=== PATIENT | female | born 1980 ===

== ENCOUNTER → 2021-06-28 | Outpatient (CLI) | payer SELFPAY | LOC: LABNPT 15:05 → EDSEX 15:05 | PROVIDERS: ATTEND Family Medicine | DX: H60.501 Unspecified acute noninfective otitis externa, right ear (principal) | CPT/HCPCS: 87070; 87077 ==

== ENCOUNTER → 2021-10-18 | Outpatient (CLI) | payer MEDICAID | LOC: LAB FS 12:32 | PROVIDERS: ATTEND Registered Nurse Emergency | DX: Z01.419 Encounter for gynecological examination (general) (routine) without abnormal findings (principal); N93.9 Abnormal uterine and vaginal bleeding, unspecified | CPT/HCPCS: 87210 ==

== ENCOUNTER → 2021-11-15 | Outpatient (CLI) | payer MEDICAID ==
[2021-11-15 12:25] LABS: BASOPHILS % (AUTO) 0 % (0-10); EOSINOPHILS # (AUTO) 0.1 10^3/uL (0.0-0.3); EOSINOPHILS % (AUTO) 2 % (0-10); HEMATOCRIT 42 % (35-52); HEMOGLOBIN 13.9 g/dL (11.5-16.0); LYMPHOCYTES # (AUTO) 1.8 10^3/uL (1.0-4.0); LYMPHOCYTES % (AUTO) 32 % (12-44); MEAN CORPUSCULAR HEMOGLOBIN 29 pg (25-34); MEAN CORPUSCULAR HGB CONC 33 g/dL (32-36); MEAN CORPUSCULAR VOLUME 87 fL (80-99); MEAN PLATELET VOLUME 10.4 fL (9.0-12.2); MONOCYTES # (AUTO) 0.4 10^3/uL (0.0-1.0); MONOCYTES % (AUTO) 7 % (0-12); NEUTROPHILS # (AUTO) 3.5 10^3/uL (1.8-7.8); NEUTROPHILS % (AUTO) 60 % (42-75); PLATELET COUNT 221 10^3/uL (130-400); WHITE BLOOD COUNT 5.8 10^3/uL (4.3-11.0)
== END ==
LOC: LAB FS 12:04
PROVIDERS: ATTEND Family Medicine
DX: O02.1 Missed abortion (principal)
CPT/HCPCS: 36415; 84702; 85025; 86850; 86900; 86901

== ENCOUNTER 2021-11-17 07:54 | Day surgery (SDC) | payer MEDICAID ==
[~2021-11-17] VITALS: Ht 165.1 cm; Wt 61.3 kg
[2021-11-17] VITALS (12 sets, daily range): BP systolic 100–126; BP diastolic 68–84
--- NOTE | 2021-11-17 08:45 | Progress Note-Pre Operative ---
Pre-Operative Progress Note H&P Reviewed The H&P was reviewed, patient examined and no changes noted. Time Seen by Provider: 08:25 Date H&P Reviewed: Nov 17, 2021 Time H&P Reviewed: 08:25 Pre-Operative Diagnosis: incomplete AB RADHA GALEANA MD Nov 17, 2021 08:45
[2021-11-17] MEDS: LACTATED RINGERS 1,000 ML IV PRN ×2 (08:55→10:24)
[2021-11-17] MEDS ORDERED: ceFAZolin 2 GM IV Premixed 50 ML ONE (08:59)
[2021-11-17] MEDS ORDERED: ceFAZolin 2 GM IV Premixed 50 ML IV ONE (09:00)
[2021-11-17] MEDS ORDERED: fentaNYL INJ 100 MCG/2 ML AMP ONE (09:13)
[2021-11-17] MEDS ORDERED: MIDAZOLAM 2 MG/2 ML (VERSED) VIAL ONE (09:13)
[2021-11-17] MEDS ORDERED: BUPIVACAINE 0.5% 30 ML (SENSORCAINE) VIAL ONE (09:40)
[2021-11-17] MEDS ORDERED: ONDANSETRON 4 MG/2 ML (SDV) Z0FRAN ONE (09:52)
[2021-11-17] MEDS ORDERED: LIDOCAINE PF 2% 5 ML (XYLOCAINE) VIAL ONE (09:52)
[2021-11-17] MEDS ORDERED: proPOfol 200 MG/20 ML (DIPRIVAN) VIAL IV ONE (09:52)
--- NOTE | 2021-11-17 10:21 | OB/GYN Operative Report ---
Operative Report Date of Procedure:Nov 17, 2021 Preoperative Diagnosis: [AB at 8 weeks] Postoperative Diagnosis: [Same] Name of the Procedure: [Sono-guided suction D&C] Surgeon: Radha Galeana Mail Sorter And Delivery(s): [none] Anesthesia: [General] Indications for Procedure: [] Findings of the Procedure: [Intrauterine at 8 weeks gestation with no cardiac activity and old blood clots] Name and Description of the Procedure: [] Complications: None Disposition: Stable Procedure After the risk benefits alternatives of the procedure were described to the patient she was taken to the operating room where general anesthesia was obta ined without difficulty. She was placed in the dorsal lithotomy position and prepped and draped in the usual sterile fashion. Transvesicle sono demonstrated the above findings. A weighted speculum was placed in the patient's vagina and the anterior lip of the cervix grasped with a single-tooth tenaculum. A paracervical block was placed and the cervix was dilated to accommodate an 8 mm curved curette. Under sono guidance this was advanced and suction applied to remove products of conception. The sac was advanced to the cervical os and removed with pickups. Suction was continued until no additional products were retrieved. Sharp curette was performed once confirming rough edges throughout the endometrial canal. Transabdominal sono confirmed removal of all products of conception. All instruments removed from the patient's vagina. Patient tolerated the procedure well. Sponge lap needle and instrument counts were correct and she was taken to recovery room awake and in stable condition RADHA GALEANA MD Nov 17, 2021 10:21
[2021-11-17] MEDS ORDERED: SEVOFLURANE (ULTANE) 15 ML INHAL SOLN ONE (10:28)
[2021-11-17] MEDS ORDERED: KETOROLAC 30 MG/ML VIAL IVP ONE (10:30)
[2021-11-17] MEDS ORDERED: D5 LR IV SOLUTION 1,000 ML IV SCH (10:30)
[2021-11-17] MEDS ORDERED: ONDANSETRON 4 MG/2 ML (SDV) Z0FRAN IVP PRN (10:30)
[2021-11-17] MEDS ORDERED: KETOROLAC 30 MG/ML VIAL ONE (10:38)
--- NOTE | 2021-11-17 12:57 | Anesthesia-General Post-Op ---
General Patient Condition Mental Status/LOC: Same as Preop Cardiovascular: Satisfactory Nausea/Vomiting: Absent Respiratory: Satisfactory Pain: Controlled Complications: Absent Post Op Complications Complications None Follow Up Care/Instructions Patient Instructions None needed. Anesthesia/Patient Condition Patient Condition Patient is doing well, no complaints, stable vital signs, no apparent adverse anesthesia problems. No complications reported per nursing. GARTH ENNIS CRNA Nov 17, 2021 12:57
== END 2021-11-17 12:50 ==
LOC: SDC 07:54
PROVIDERS: ATTEND Obstetrics & Gynecology
DX: O03.4 Incomplete spontaneous abortion without complication (principal)
CPT/HCPCS: 87081

== ENCOUNTER → 2021-12-07 | Outpatient (CLI) | payer MEDICAID ==
[2021-12-07 13:47] LABS: BASOPHILS % (AUTO) 1 % (0-10); EOSINOPHILS # (AUTO) 0.2 10^3/uL (0.0-0.3); EOSINOPHILS % (AUTO) 2 % (0-10); HEMATOCRIT 44 % (35-52); HEMOGLOBIN 14.1 g/dL (11.5-16.0); LYMPHOCYTES # (AUTO) 2.2 10^3/uL (1.0-4.0); LYMPHOCYTES % (AUTO) 27 % (12-44); MEAN CORPUSCULAR HEMOGLOBIN 29 pg (25-34); MEAN CORPUSCULAR HGB CONC 32 g/dL (32-36); MEAN CORPUSCULAR VOLUME 88 fL (80-99); MEAN PLATELET VOLUME 10.6 fL (9.0-12.2); MONOCYTES # (AUTO) 0.6 10^3/uL (0.0-1.0); MONOCYTES % (AUTO) 7 % (0-12); NEUTROPHILS # (AUTO) 5.2 10^3/uL (1.8-7.8); NEUTROPHILS % (AUTO) 63 % (42-75); PLATELET COUNT 287 10^3/uL (130-400); WHITE BLOOD COUNT 8.3 10^3/uL (4.3-11.0)
[2021-12-07 13:48] LABS: BILIRUBIN,URINE NEGATIVE (NEGATIVE); CLARITY,URINE CLEAR; COLOR,URINE YELLOW; GLUCOSE, URINE (UA) NEGATIVE (NEGATIVE); KETONES,URINE NEGATIVE (NEGATIVE); LEUKOCYTE ESTERASE ,URINE NEGATIVE (NEGATIVE); NITRITE,URINE NEGATIVE (NEGATIVE); PH,URINE 5.5 (5-9); PROTEIN,URINE NEGATIVE (NEGATIVE)
[2021-12-07 13:58] LABS: ALANINE AMINOTRANSFERASE 23 U/L (0-55); ALBUMIN 4.1 GM/DL (3.2-4.5); ALKALINE PHOSPHATASE 73 U/L (40-136); BACTERIA,URINE MODERATE /HPF; BILIRUBIN,TOTAL 0.2 MG/DL (0.1-1.0); BUN/CREATININE RATIO 29; CALCIUM 9.2 MG/DL (8.5-10.1); CARBON DIOXIDE 29 MMOL/L (21-32); CHLORIDE 106 MMOL/L (98-107); CREATININE SERUM 0.65 MG/DL (0.60-1.30); GFR ESTIMATED 114; GLUCOSE 94 MG/DL (70-105); POTASSIUM 4.5 MMOL/L (3.6-5.0); SODIUM 139 MMOL/L (135-145); TOTAL PROTEIN 7.2 GM/DL (6.4-8.2)
== END ==
LOC: LABNPT 13:25
PROVIDERS: ATTEND Obstetrics & Gynecology
DX: G89.18 Other acute postprocedural pain (principal)
CPT/HCPCS: 80053; 81000; 84702; 85025; 87088

== ENCOUNTER → 2023-02-19 | Outpatient (CLI) | payer MEDICAID ==
[2023-02-19 17:38] LABS: BASOPHILS % (AUTO) 0 % (0-10); EOSINOPHILS # (AUTO) 0.1 10^3/uL (0.0-0.3); EOSINOPHILS % (AUTO) 1 % (0-10); HEMATOCRIT 38 % (35-52); LYMPHOCYTES # (AUTO) 2.2 10^3/uL (1.0-4.0); LYMPHOCYTES % (AUTO) 24 % (12-44); MEAN CORPUSCULAR HEMOGLOBIN 26 pg (25-34); MEAN CORPUSCULAR HGB CONC 32 g/dL (32-36); MEAN CORPUSCULAR VOLUME 83 fL (80-99); MEAN PLATELET VOLUME 11.5 fL (9.0-12.2); MONOCYTES # (AUTO) 0.6 10^3/uL (0.0-1.0); MONOCYTES % (AUTO) 7 % (0-12); NEUTROPHILS # (AUTO) 6.1 10^3/uL (1.8-7.8); NEUTROPHILS % (AUTO) 68 % (42-75); PLATELET COUNT 265 10^3/uL (130-400); WHITE BLOOD COUNT 9.1 10^3/uL (4.3-11.0)
[2023-02-19 17:40] LABS: BILIRUBIN,URINE NEGATIVE (NEGATIVE); CLARITY,URINE CLEAR; COLOR,URINE YELLOW; GLUCOSE, URINE (UA) NEGATIVE (NEGATIVE); KETONES,URINE NEGATIVE (NEGATIVE); LEUKOCYTE ESTERASE ,URINE NEGATIVE (NEGATIVE); NITRITE,URINE NEGATIVE (NEGATIVE); PROTEIN,URINE NEGATIVE (NEGATIVE)
[2023-02-19 17:47] LABS: BACTERIA,URINE FEW /HPF; RBC,URINE 0-2 /HPF; WBC,URINE 0-2 /HPF
[2023-02-19 17:57] LABS: CALCIUM 9.2 MG/DL (8.5-10.1); CREATININE SERUM 0.63 MG/DL (0.60-1.30); POTASSIUM 4.4 MMOL/L (3.6-5.0)
[2023-02-19 17:58] LABS: ALBUMIN 4.1 GM/DL (3.2-4.5); BILIRUBIN,TOTAL 0.2 MG/DL (0.1-1.0); TOTAL PROTEIN 6.9 GM/DL (6.4-8.2)
== END ==
LOC: GIR 17:19
PROVIDERS: ATTEND Registered Nurse Emergency
DX: M54.16 Radiculopathy, lumbar region (principal); R30.0 Dysuria
CPT/HCPCS: 80053; 81000; 85025

== ENCOUNTER → 2023-03-20 | Outpatient (CLI) | payer MEDICAID | LOC: GIR 17:16 | PROVIDERS: ATTEND Registered Nurse Emergency | DX: N89.8 Other specified noninflammatory disorders of vagina (principal) | CPT/HCPCS: 87210 ==